=== PATIENT | female | born 1955 | race African-American/Black ===

== ENCOUNTER 2018-02-26 15:51 | Emergency (ER) | payer SELFPAY ==
--- NOTE | 2018-02-26 17:04 | PDOC ---
History of Present Illness - General History Source: Patient Exam Limitations: No Limitations <Jorge Nicole - Last Filed: 02/26/18 19:02> - General History Source: Patient Exam Limitations: No Limitations - History of Present Illness Initial Comments: 02/26/18 19:13 The patient is a 62 year old female with past medical history of diabetes, acid reflux, cholesterol, hyperthyroidism, and HTN presents to the emergency department accompanied by a friend with fatigue and malaise. The patient was evaluated at [facility] for similar symptoms with an acute onset of diarrhea (watery, brownish) for the past 3 days. The patient reports concerns due to her not back to her normal self. The patient reports symptoms of loss of appetite, weight loss (33 lb in the last 2 months), generalized weakness, yellow colored urine and hoarseness. Denies nausea, vomiting, headaches, fever, chills. Denies abd pain, chest pain or SOB. Sreedhar hematochezia, melena, dysuria , hematuria, or frequency or urgency to urinate. Allergies: NKDA Social history: None reported. <Shilpa Ramos - Last Filed: 02/26/18 19:13> - General Chief Complaint: Lethargy Stated Complaint: LETHARGIC Time Seen by Provider: 02/26/18 15:54 Past History <Jorge Nicole - Last Filed: 02/26/18 19:02> <Shilpa Ramos - Last Filed: 02/26/18 19:13> - Past Medical History Allergies/Adverse Reactions: Allergies Allergy/AdvReac Type Severity Reaction Status Date / Time No Known Allergies Allergy Verified 02/26/18 15:54 Home Medications: Ambulatory Orders Amlodipine Besylate [Norvasc -] 5 mg PO DAILY 02/26/18 Atenolol [Tenormin] 50 mg PO BID 02/26/18 Atorvastatin Ca [Lipitor] 40 mg PO HS 02/26/18 Folic Acid 1 mg PO DAILY 02/26/18 Glimepiride [Amaryl -] 2 mg PO DAILY 02/26/18 Hydrochlorothiazide [Hctz -] 25 mg PO DAILY 02/26/18 Losartan Potassium [Cozaar] 100 mg PO DAILY 02/26/18 Methimazole 30 mg PO DAILY 02/26/18 Pantoprazole Sodium [Protonix] 40 mg PO DAILY 02/26/18 Review of Systems - Review of Systems Able to Perform ROS?: Yes Comments:: 02/26/18 19:13 Constitutional - (+) Fatigue. Pt denies Fever, Chills. HEENT: denies vision changes, sore throat Respiratory: Denies cough, sob, hemoptysis Cardiac: denies chest pain, palpitations, lightheadedness, leg swelling Abd/GI: (+) watery diarrhea. denies abd pain, nausea, vomiting, blood per rectum , melena or hematochezia. : denies dysuria, frequency, discharge Musculskelatal - denies back pain, joint swelling skin - denies bruising, erythema, rash neurological:(+) generalized weakness and malaise. denies headache, numbness, focal weakness, tingling, ataxia. hematologic: denies anemia, easy bruising, easy bleeding <Shilpa Ramos - Last Filed: 02/26/18 19:13> *Physical Exam - Vital Signs Last Vital Signs Temp Pulse Resp BP Pulse Ox 98.5 F 65 16 140/55 97 02/26/18 15:53 02/26/18 15:53 02/26/18 15:53 02/26/18 15:53 02/26/18 15:53 - Physical Exam Comments: 02/26/18 19:13 GENERAL: The patient is awake, alert, and fully oriented, Nontoxic - in no acute distress. HEAD: Normocephalic, atraumatic. EYES: extraocular movements intact, sclera anicteric, conjunctiva clear. ENT: Normal voice, Moist mucous membranes. NECK: Normal range of motion, supple LUNGS: Breath sounds equal, clear to auscultation bilaterally. No wheezes, no rhonchi, no rales. HEART: Regular rate and rhythm, normal S1 and S2 without murmur, rub or gallop. ABDOMEN: Soft, nontender, normoactive bowel sounds. No guarding, no rebound. No CVA tenderness EXTREMITIES: Normal range of motion, no edema. No clubbing or cyanosis. No cords, erythema, or tenderness. PSYCH: Normal mood, normal affect. SKIN: Warm, Dry, normal turgor, NEURO: Mental status: The patient is oriented x3. Cranial nerves: Cranial nerves II through XII are intact Motor: The upper extremities are 5 over 5 in all muscle groups. The lower extremities are 5 over 5 in all muscle groups. Negative pronator drift Sensation: Sensation is intact to light touch throughout. romberg negative Cerebellar: Knebrh-eolicn-imhv is normal in both upper extremities. Gait: Normal. <Shilpa Ramos - Last Filed: 02/26/18 19:13> Heart Score/ECG Review - ECG Impressions Comment:: 02/26/18 18:02 Twelve-lead EKG was performed and reviewed by me. There is normal sinus rhythm with a normal rate. Rate of 61 The axis is normal. The intervals are normal. There is normal R wave progression Nonspecific T wave abnormality <Jorge Nicole - Last Filed: 02/26/18 19:02> ED Treatment Course - LABORATORY CBC & Chemistry Diagram: 02/26/18 17:49 02/26/18 17:49 <Jorge Nicole - Last Filed: 02/26/18 19:02> - LABORATORY CBC & Chemistry Diagram: 02/26/18 17:49 02/26/18 17:49 - ADDITIONAL ORDERS Additional order review: Laboratory Results 02/26/18 02/26/18 18:32 17:49 Sodium 135 L Potassium 3.7 Chloride 101 Carbon Dioxide 29 H Anion Gap 5 L BUN 21 H Creatinine < 0.8 Creat Clearance w eGFR > 60 Random Glucose 117 H Calcium 11.5 H Total Bilirubin 1.7 H AST 30 ALT 27 Alkaline Phosphatase 55 Total Protein 6.5 Albumin 3.6 Urine Color Yellow Urine Appearance Hazy Urine pH 5.5 Ur Specific Barney 1.025 Urine Protein Negative Urine Glucose (UA) Negative Urine Ketones Trace Urine Blood Negative Urine Nitrite Negative Urine Bilirubin Negative Urine Urobilinogen 1.0 Ur Leukocyte Esterase 1+ H Urine RBC 0-3 Urine WBC 5-10 Ur Epithelial Cells 5-10 Calcium Oxalate Crystal Many Urine Yeast Rare 02/26/18 17:49 RBC 3.31 L MCV 89.5 MCHC 33.9 RDW 11.6 MPV 11.1 Neutrophils % 53.2 Lymphocytes % 32.2 Monocytes % 11.9 H Eosinophils % 2.4 Basophils % 0.3 <Shilpa Ramos - Last Filed: 02/26/18 19:13> Medical Decision Making - Medical Decision Making 02/26/18 17:58 62y F hx of thyroid problems htn, hl, dm presents with complaint of diarrhea x 3 days and generalized weakness for a few weeks. pt was evaluated at [facility] and admitted for overnight stay and was dx with tyroid disorder. pt is feelig about the same since discharge beside her diarrhea - no assocated f/c, abd pain, cp, sob. on exam pt appears well with a normal exam including neuro exam will check lab work to rule out anemia, metabolic derangements, occult UTI, EKG to screen for ACS Will reassess if the patient's blood work is unremarkable will likely discharge to follow-up with PMD for further evaluation A portion of this note was documented by scribe services under my direction. I have reviewed the details of the note, within reason, and agree with the documentation with the following case summary and management plan written by me 02/26/18 19:02 The patient's blood work was reviewed TSH pending Will have the patient follow up with her primary care doctor next week for further evaluation I discussed the physical exam findings, ancillary test results and final diagnoses with the patient. I answered all of the patient's questions. The patient was satisfied with the care received and felt comfortable with the discharge plan and treatment plan. The patient will call their primary care physician within 24 hours to arrange follow-up and will return to the Emergency Department with any new, persistent or worsening symptoms. <Jorge Niocle - Last Filed: 02/26/18 19:02> *DC/Admit/Observation/Transfer - Discharge Dispostion Admit: No <Jorge Nicole - Last Filed: 02/26/18 19:02> - Attestations Scribe Attestion: 02/26/18 19:13 Documentation prepared by Shilpa Ramos, acting as pediatric medical assistant for Jorge Nicole MD. <Shilpa Ramos - Last Filed: 02/26/18 19:13> Diagnosis at time of Disposition: Malaise Diarrhea Qualifiers: Diarrhea type: unspecified type Qualified Code(s): R19.7 - Diarrhea, unspecified Anemia Qualifiers: Anemia type: other cause Other causes of anemia: other cause, not classified Qualified Code(s): D64.89 - Other specified anemias - Discharge Dispostion Disposition: HOME Condition at time of disposition: Stable - Referrals Referrals: humza navarro [Other] - Patient Instructions Printed Discharge Instructions: Anemia, DI for Muscle Weakness Additional Instructions: Return to the emergency department immediately with ANY new, persistent or worsening symptoms during any pain, shortness of breath, fevers, chills or any other concerns. You were some mild abnormalities in your blood work including anemia, slightly elevated calcium, slightly low sodium please follow-up with Dr. Chayo Argueta next week. Your thyroid function is pending. You MUST call and follow up with your doctor on wednesday or for further evaluation of your symptoms. Results were discussed with you. Please make sure your doctor reviews the results of your emergency evaluation. Print Language: GREEK
[2018-02-26 17:06] VITALS: BP 140/55; PULSE 65; TEMP 98.5; BMI 24.3
[2018-02-26 18:11] LABS: BASO % 0.3 % (0-2.0); EOS % 2.4 % (0-4.5); HEMATOCRIT 29.6 % (32.4-45.2); LYMPH % 32.2 % (8-40); MCH 30.3 pg (25.7-33.7); MCHC 33.9 g/dl (32.0-36.0); MEAN CELL VOLUME 89.5 fl (80-96); MEAN PLT VOLUME 11.1 fl (7.5-11.1); MONO % 11.9 % (3.8-10.2); NEUT % 53.2 % (42.8-82.8); PLATELET COUNT 149 K/MM3 (134-434); RBC 3.31 M/mm3 (3.60-5.2); RDW 11.6 % (11.6-15.6); WHITE BLOOD COUNT 4.4 K/mm3 (4.0-10.8)
[2018-02-26 18:16] LABS: ALBUMIN 3.6 g/dl (3.5-5.0); ALK PHOS 55 U/L (32-92); ANION GAP 5 (8-16); BILIRUBIN,TOTAL 1.7 mg/dl (0.2-1.0); BLOOD UREA NITROGEN 21 mg/dl (7-18); CALCIUM 11.5 mg/dl (8.4-10.2); CHLORIDE 101 mmol/L (98-107); CO2 29 mmol/L (22-28); GLUCOSE,RANDOM 117 mg/dl (74-106); POTASSIUM 3.7 mmol/L (3.5-5.1); SGOT/AST 30 U/L (10-42); SGPT/ALT 27 U/L (10-40); SODIUM 135 mmol/L (136-145); TOT PROT 6.5 g/dl (6.4-8.3)
[2018-02-26 18:23] LABS: CREATININE < 0.8 mg/dl (0.6-1.3)
[2018-02-26 18:41] LABS: PH,URINE 5.5 (4.5-8); URINE APPEARANCE HAZY; URINE BILIRUBIN Negative (NEGATIVE); URINE COLOR YELLOW; URINE GLUCOSE (UA) Negative (NEGATIVE); URINE KETONE Trace (NEGATIVE); URINE LEUK ESTERASE 1+ (NEGATIVE); URINE NITRITE Negative (NEGATIVE); URINE PROTEIN Negative (NEGATIVE)
[2018-02-26 18:58] LABS: CALCIUM OXALATE CRYSTALS MANY /hpf (NONE SEEN); URINE RBC 0-3 /hpf (0-3); YEAST RARE
--- NOTE | 2018-02-27 14:34 | EKG ---
Test Reason : Blood Pressure : / mmHG Vent. Rate : 061 BPM Atrial Rate : 061 BPM P-R Int : 156 ms QRS Dur : 080 ms QT Int : 404 ms P-R-T Axes : 036 023 048 degrees QTc Int : 406 ms NORMAL SINUS RHYTHM WITH SINUS ARRHYTHMIA MINIMAL VOLTAGE CRITERIA FOR LVH, MAY BE NORMAL VARIANT NONSPECIFIC T WAVE ABNORMALITY ABNORMAL ECG NO PREVIOUS ECGS AVAILABLE Confirmed by MD Conor, Sky ([id number]) on 02/27/2018 2:33:52 PM Referred By: ANKIT Confirmed By:Sky Perdomo MD
== END 2018-02-26 19:35 | disposition home or self-care (01) ==
LOC: EDBD → FER 15:51
DX: R53.81 Other malaise (principal); R19.7 Diarrhea, unspecified; D64.89 Other specified anemias; I10 Essential (primary) hypertension; E78.00 Pure hypercholesterolemia, unspecified; E03.9 Hypothyroidism, unspecified; E11.9 Type 2 diabetes mellitus without complications
CPT/HCPCS: 36415; 80053; 81003; 81015; 84443; 85025; 93005; 99283-25

== ENCOUNTER 2022-10-11 21:56 | Inpatient (IN) | payer OTHER ==
[2022-10-11 22:08] VITALS: BMI 27.0
[2022-10-11] MEDS ORDERED: LORazepam 2 MG/ML SDV VIAL IVPUSH ONE (22:57)
[2022-10-11] MEDS ORDERED: LORazepam 2 MG TABLET PO ONE (22:58)
[2022-10-11] MEDS ORDERED: LORazepam 1 MG TABLET ONE (23:15)
[2022-10-11 23:47] LABS: INR 1.07 (0.83-1.09); PROTHROMBIN TIME (PATIENT) 12.3 SEC (9.7-13.0)
[2022-10-11 23:49] LABS: HEMOGLOBIN 12.6 GM/dL (10.7-15.3); MCH 30.9 pg (25.7-33.7); MCHC 32.4 g/dl (32.0-36.0); MEAN CELL VOLUME 95.6 fl (80-96); MEAN PLT VOLUME 10.7 fl (7.5-11.1); RBC 4.08 M/mm3 (3.60-5.2); RDW 12.9 % (11.6-15.6); WHITE BLOOD COUNT 7.7 K/mm3 (4.0-10.0)
[2022-10-11 23:50] LABS: ACTIVATED PTT 22.7 SECONDS (25.2-36.5)
[2022-10-12 00:25] LABS: ALBUMIN 4.6 g/dl (3.4-5.0); BLOOD UREA NITROGEN 18.4 mg/dL (7-18); CALCIUM 10.9 mg/dL (8.5-10.1)
[2022-10-12 00:28] LABS: CREATININE 1.2 mg/dL (0.55-1.3)
[2022-10-12 00:30] LABS: BILIRUBIN,TOTAL 1.3 mg/dL (0.2-1); TOT PROT 8.8 g/dl (6.4-8.2)
[2022-10-12] MEDS ORDERED: SODIUM CHLORIDE 0.9% 500 ML INFUS.BAG IV ONE (02:05)
[2022-10-12 04:13] LABS: ANISOCYTOSIS 1+; MACROCYTOSIS 1+
[2022-10-12 04:17] LABS: PLATELET COUNT 371 10^3/uL (134-434)
[2022-10-12 07:57] LABS: BASO % 0.8 % (0-2.0); HEMATOCRIT 34.9 % (32.4-45.2); HEMOGLOBIN 11.2 GM/dL (10.7-15.3); MCH 30.9 pg (25.7-33.7); MCHC 32.3 g/dl (32.0-36.0); MEAN CELL VOLUME 95.9 fl (80-96); MEAN PLT VOLUME 10.5 fl (7.5-11.1); MONO % 10.1 % (3.8-10.2); NEUT % 57.1 % (42.8-82.8); PLATELET COUNT 190 10^3/uL (134-434); RBC 3.64 M/mm3 (3.60-5.2); RDW 12.7 % (11.6-15.6)
[2022-10-12 08:13] LABS: CALCIUM 10.4 mg/dL (8.5-10.1)
[2022-10-12 08:14] LABS: ALBUMIN 3.8 g/dl (3.4-5.0); BLOOD UREA NITROGEN 19.6 mg/dL (7-18); MAGNESIUM 1.4 mg/dL (1.8-2.4)
[2022-10-12 08:16] LABS: CREATININE 0.8 mg/dL (0.55-1.3)
[2022-10-12] MEDS: INSULIN SLIDING SCALE (NOVOLOG) 1 VIAL SQ SCH ×4 (08:16→23:02)
[2022-10-12 08:17] LABS: PHOSPHOROUS 3.8 mg/dL (2.5-4.9)
[2022-10-12 08:18] LABS: BILIRUBIN,TOTAL 1.1 mg/dL (0.2-1); TOT PROT 7.4 g/dl (6.4-8.2)
[2022-10-12] MEDS ORDERED: ENOXAPARIN NA (PORCINE) 40 MG/0.4 ML DISP.SYRIN SQ ONE (10:24)
[2022-10-12] MEDS: ENOXAPARIN NA (PORCINE) 40 MG/0.4 ML DISP.SYRIN SQ SCH (11:49)
[2022-10-12 13:57] LABS: EPI CELLS 25 /uL (0-25.1); HYALINE CASTS 5 /uL (0-3.1); PH,URINE 5.5 (5.0-8.0); URINE APPEARANCE CLEAR; URINE BACTERIA 36 /uL (0-1359); URINE BILIRUBIN NEGATIVE (NEGATIVE); URINE COLOR YELLOW; URINE GLUCOSE (UA) TRACE (NEGATIVE); URINE KETONE NEGATIVE (NEGATIVE); URINE LEUK ESTERASE NEGATIVE (NEGATIVE); URINE NITRITE NEGATIVE (NEGATIVE); URINE PROTEIN 1+ (NEGATIVE); URINE RBC 10 /uL (0-23.9); URINE UROBILINOGEN 0.2 mg/dL (0.2-1.0); URINE WBC 31 /uL (0-25.8)
[2022-10-12 14:21] LABS: COCAINE, UR NEGATIVE (NEGATIVE); PHENCYCLIDINE,URINE NEGATIVE (NEGATIVE); URINE BARBITURATES NEGATIVE (NEGATIVE)
[2022-10-12 14:26] LABS: METHADONE, UR NEGATIVE (NEGATIVE); OPIATES, URI NEGATIVE (NEGATIVE); URINE AMPHETAMINES NEGATIVE (NEGATIVE); URINE BENZODIAZEPINES NEGATIVE (NEGATIVE)
[2022-10-12] MEDS ORDERED: MAGNESIUM SULF 50% (8.12 MEQ/2 ML-1 GM VIAL) IVPB ONE (16:20)
[2022-10-12] MEDS ORDERED: MAGNESIUM SULFATE IN WATER 2 GM/50 ML IVPB IVPB ONE (17:03)
[2022-10-12] MEDS ORDERED: LABETALOL HCL 5 MG/1 ML (100MG/20 ML VIAL) IVPUSH ONE (22:48)
[2022-10-12] MEDS ORDERED: LORazepam 2 MG/ML SDV VIAL IVPUSH ONE (23:02)
[2022-10-12] MEDS ORDERED: hydrALAZINE HCL 20 MG/ML VIAL IVPUSH ONE (23:02)
[2022-10-12] MEDS ORDERED: QUEtiapine FUMARATE 25 MG TABLET PO ONE (23:08)
[2022-10-13] MEDS: INSULIN SLIDING SCALE (NOVOLOG) 1 VIAL SQ SCH ×4 (06:24→22:01)
[2022-10-13 09:17] LABS: BASO % 0.6 % (0-2.0); EOS % 1.3 % (0-4.5); HEMOGLOBIN 12.1 GM/dL (10.7-15.3); LYMPH % 40.1 % (8-40); MCH 31.9 pg (25.7-33.7); MCHC 33.6 g/dl (32.0-36.0); MEAN CELL VOLUME 94.9 fl (80-96); MEAN PLT VOLUME 9.8 fl (7.5-11.1); MONO % 9.1 % (3.8-10.2); NEUT % 48.9 % (42.8-82.8); PLATELET COUNT 202 10^3/uL (134-434); RDW 13.5 % (11.6-15.6); WHITE BLOOD COUNT 5.1 K/mm3 (4.0-10.0)
[2022-10-13 09:41] LABS: CALCIUM 10.8 mg/dL (8.5-10.1)
[2022-10-13 09:42] LABS: MAGNESIUM 1.4 mg/dL (1.8-2.4)
[2022-10-13 09:43] LABS: BLOOD UREA NITROGEN 15.2 mg/dL (7-18)
[2022-10-13 09:44] LABS: ALBUMIN 4.1 g/dl (3.4-5.0)
[2022-10-13 09:45] LABS: CREATININE 0.7 mg/dL (0.55-1.3)
[2022-10-13 09:46] LABS: TOT PROT 7.7 g/dl (6.4-8.2)
[2022-10-13 09:47] LABS: PHOSPHOROUS 3.7 mg/dL (2.5-4.9)
[2022-10-13 09:48] LABS: BILIRUBIN,TOTAL 1.5 mg/dL (0.2-1)
[2022-10-13] MEDS ORDERED: MAGNESIUM 1GM/D5W - 1 GM/100 ML IVPB IVPB ONE (10:45)
[2022-10-13] MEDS: ENOXAPARIN NA (PORCINE) 40 MG/0.4 ML DISP.SYRIN SQ SCH (12:05)
[2022-10-13] MEDS: ASPIRIN 81 MG CHEWABLE TABLETS PO SCH (12:05)
[2022-10-13] MEDS ORDERED: hydrALAZINE HCL 20 MG/ML VIAL IVPUSH ONE (22:57)
[2022-10-13] MEDS: ACETAMINOPHEN 325 MG TABLET (FP) PO PRN (23:06)
[2022-10-14] MEDS: INSULIN SLIDING SCALE (NOVOLOG) 1 VIAL SQ SCH ×4 (07:15→21:52)
[2022-10-14] MEDS: ENOXAPARIN NA (PORCINE) 40 MG/0.4 ML DISP.SYRIN SQ SCH (09:52)
[2022-10-14] MEDS: ASPIRIN 81 MG CHEWABLE TABLETS PO SCH (09:52)
[2022-10-14] MEDS ORDERED: hydrALAZINE HCL 25 MG TABLET (FP) PO SCH (10:00)
[2022-10-14] MEDS ORDERED: amLODIPine BESYLATE 5 MG TABLET (FP) PO SCH (12:45)
[2022-10-14 13:10] LABS: MAGNESIUM 1.6 mg/dL (1.8-2.4)
[2022-10-14] MEDS: HYDROCHLOROTHIAZIDE 25 MG TABLET (FP) PO SCH (16:22)
[2022-10-14] MEDS: LOSARTAN POTASSIUM 50 MG TABLET PO SCH (16:22)
[2022-10-14] MEDS: ATENOLOL 50 MG TABLET (FP) PO SCH ×2 (16:23→21:52)
[2022-10-15] MEDS: INSULIN SLIDING SCALE (NOVOLOG) 1 VIAL SQ SCH ×4 (06:18→21:42)
[2022-10-15] MEDS: ENOXAPARIN NA (PORCINE) 40 MG/0.4 ML DISP.SYRIN SQ SCH (09:04)
[2022-10-15] MEDS: ATENOLOL 50 MG TABLET (FP) PO SCH (09:05)
[2022-10-15] MEDS: ASPIRIN 81 MG CHEWABLE TABLETS PO SCH (09:05)
[2022-10-15] MEDS: HYDROCHLOROTHIAZIDE 25 MG TABLET (FP) PO SCH (09:05)
[2022-10-15] MEDS: LOSARTAN POTASSIUM 50 MG TABLET PO SCH (09:05)
[2022-10-15] MEDS ORDERED: MAGNESIUM SULF 50% (8.12 MEQ/2 ML-1 GM VIAL) IVPB ONE (16:49)
[2022-10-16] MEDS: INSULIN SLIDING SCALE (NOVOLOG) 1 VIAL SQ SCH ×4 (06:23→21:21)
[2022-10-16 09:22] LABS: EOS % 2.2 % (0-4.5); HEMATOCRIT 32.4 % (32.4-45.2); HEMOGLOBIN 10.4 GM/dL (10.7-15.3); LYMPH % 49.6 % (8-40); MCH 30.7 pg (25.7-33.7); MCHC 32.1 g/dl (32.0-36.0); MEAN CELL VOLUME 95.8 fl (80-96); MEAN PLT VOLUME 10.3 fl (7.5-11.1); MONO % 8.6 % (3.8-10.2); NEUT % 38.6 % (42.8-82.8); PLATELET COUNT 164 10^3/uL (134-434); RBC 3.38 M/mm3 (3.60-5.2); WHITE BLOOD COUNT 3.3 K/mm3 (4.0-10.0)
[2022-10-16] MEDS: LOSARTAN POTASSIUM 50 MG TABLET PO SCH (09:30)
[2022-10-16] MEDS: NIFEdipine E.R. 90 MG TABLET PO SCH (09:30)
[2022-10-16] MEDS: FOLIC ACID 1 MG TABLET (FP) PO SCH (09:30)
[2022-10-16] MEDS: ASPIRIN 81 MG CHEWABLE TABLETS PO SCH (09:30)
[2022-10-16] MEDS: PANTOPRAZOLE 40 MG TABLET PO SCH (09:30)
[2022-10-16] MEDS: METHIMAZOLE 10 MG TABLET PO SCH (09:31)
[2022-10-16] MEDS: ENOXAPARIN NA (PORCINE) 40 MG/0.4 ML DISP.SYRIN SQ SCH (09:36)
[2022-10-16 09:45] LABS: ALBUMIN 3.7 g/dl (3.4-5.0)
[2022-10-16 09:48] LABS: MAGNESIUM 1.5 mg/dL (1.8-2.4)
[2022-10-16 09:50] LABS: CREATININE 0.7 mg/dL (0.55-1.3); PHOSPHOROUS 3.2 mg/dL (2.5-4.9)
[2022-10-16 09:51] LABS: TOT PROT 7.2 g/dl (6.4-8.2)
[2022-10-16 09:56] LABS: BILIRUBIN,TOTAL 1.3 mg/dL (0.2-1)
[2022-10-16] MEDS ORDERED: HYDROCHLOROTHIAZIDE 25 MG TABLET (FP) PO SCH (10:00)
[2022-10-16] MEDS ORDERED: NIFEdipine E.R. 90 MG TABLET PO SCH (10:00)
[2022-10-16 10:01] LABS: CALCIUM 10.4 mg/dL (8.5-10.1)
[2022-10-16] MEDS ORDERED: MAGNESIUM SULF 50% (8.12 MEQ/2 ML-1 GM VIAL) IVPB ONE ×2 (11:00)
[2022-10-16] MEDS ORDERED: hydrALAZINE HCL 10 MG TABLET PO SCH ×2 (14:00→18:00)
[2022-10-16] MEDS: CHOLECALCIFEROL (VIT D3) 1,000 UNIT (25 MCG) TABLET PO SCH (14:45)
[2022-10-16] MEDS: hydrALAZINE HCL 10 MG TABLET PO SCH (17:03)
[2022-10-17] MEDS: hydrALAZINE HCL 10 MG TABLET PO SCH ×4 (01:35→17:14)
[2022-10-17] MEDS: INSULIN SLIDING SCALE (NOVOLOG) 1 VIAL SQ SCH ×3 (08:52→16:51)
[2022-10-17] MEDS: ENOXAPARIN NA (PORCINE) 40 MG/0.4 ML DISP.SYRIN SQ SCH (09:05)
[2022-10-17] MEDS: LOSARTAN POTASSIUM 50 MG TABLET PO SCH (09:06)
[2022-10-17] MEDS: METHIMAZOLE 10 MG TABLET PO SCH (09:06)
[2022-10-17] MEDS: ASPIRIN 81 MG CHEWABLE TABLETS PO SCH (09:06)
[2022-10-17] MEDS: NIFEdipine E.R. 90 MG TABLET PO SCH (09:06)
[2022-10-17] MEDS: FOLIC ACID 1 MG TABLET (FP) PO SCH (09:06)
[2022-10-17] MEDS: CHOLECALCIFEROL (VIT D3) 1,000 UNIT (25 MCG) TABLET PO SCH (09:06)
[2022-10-17] MEDS: PANTOPRAZOLE 40 MG TABLET PO SCH (09:07)
[2022-10-17 09:29] LABS: HEMATOCRIT 35.9 % (32.4-45.2); HEMOGLOBIN 11.6 GM/dL (10.7-15.3); MCHC 32.1 g/dl (32.0-36.0); MEAN CELL VOLUME 96.3 fl (80-96); MEAN PLT VOLUME 10.4 fl (7.5-11.1); PLATELET COUNT 194 10^3/uL (134-434); RBC 3.73 M/mm3 (3.60-5.2); WHITE BLOOD COUNT 4.7 K/mm3 (4.0-10.0)
[2022-10-17 09:51] LABS: BLOOD UREA NITROGEN 14.1 mg/dL (7-18); CALCIUM 10.4 mg/dL (8.5-10.1)
[2022-10-17 09:55] LABS: CREATININE 0.9 mg/dL (0.55-1.3)
[2022-10-17 09:56] LABS: BILIRUBIN,TOTAL 1.3 mg/dL (0.2-1); TOT PROT 7.6 g/dl (6.4-8.2)
[2022-10-17] MEDS: INSULIN (NOVOLOG) ASPART 100 UNITS/ML 10ML VIAL SQ SCH ×2 (11:47→16:52)
[2022-10-18] MEDS: hydrALAZINE HCL 10 MG TABLET PO SCH ×2 (02:03→06:00)
[2022-10-18] MEDS: INSULIN SLIDING SCALE (NOVOLOG) 1 VIAL SQ SCH ×5 (02:05→21:59)
[2022-10-18] MEDS: ACETAMINOPHEN 325 MG TABLET (FP) PO PRN (06:41)
[2022-10-18] MEDS: INSULIN (NOVOLOG) ASPART 100 UNITS/ML 10ML VIAL SQ SCH ×3 (07:22→15:48)
[2022-10-18] MEDS: LOSARTAN POTASSIUM 50 MG TABLET PO SCH (09:10)
[2022-10-18] MEDS: METHIMAZOLE 10 MG TABLET PO SCH (09:10)
[2022-10-18] MEDS: NIFEdipine E.R. 90 MG TABLET PO SCH (09:14)
[2022-10-18] MEDS: CHOLECALCIFEROL (VIT D3) 1,000 UNIT (25 MCG) TABLET PO SCH (09:15)
[2022-10-18] MEDS: ENOXAPARIN NA (PORCINE) 40 MG/0.4 ML DISP.SYRIN SQ SCH (09:16)
[2022-10-18] MEDS: ASPIRIN 81 MG CHEWABLE TABLETS PO SCH (09:16)
[2022-10-18] MEDS: PANTOPRAZOLE 40 MG TABLET PO SCH (09:16)
[2022-10-18] MEDS: FOLIC ACID 1 MG TABLET (FP) PO SCH (09:16)
[2022-10-18 09:43] LABS: HEMATOCRIT 35.1 % (32.4-45.2); HEMOGLOBIN 11.2 GM/dL (10.7-15.3); LYMPH % 33.6 % (8-40); MCH 30.5 pg (25.7-33.7); MCHC 31.8 g/dl (32.0-36.0); MEAN CELL VOLUME 95.9 fl (80-96); MEAN PLT VOLUME 10.8 fl (7.5-11.1); MONO % 9.1 % (3.8-10.2); NEUT % 54.3 % (42.8-82.8); PLATELET COUNT 198 10^3/uL (134-434); RBC 3.66 M/mm3 (3.60-5.2); WHITE BLOOD COUNT 4.4 K/mm3 (4.0-10.0)
[2022-10-18 10:08] LABS: BLOOD UREA NITROGEN 18.5 mg/dL (7-18); CALCIUM 10.8 mg/dL (8.5-10.1); MAGNESIUM 1.5 mg/dL (1.8-2.4)
[2022-10-18 10:11] LABS: PHOSPHOROUS 3.3 mg/dL (2.5-4.9)
[2022-10-18 10:12] LABS: CREATININE 0.8 mg/dL (0.55-1.3)
[2022-10-18] MEDS ORDERED: MAGNESIUM SULF 50% (8.12 MEQ/2 ML-1 GM VIAL) IVPB ONE (13:30)
[2022-10-18] MEDS: CARVEDILOL 12.5 MG TABLET (FP) PO SCH ×2 (13:35→22:13)
[2022-10-19] MEDS: INSULIN (NOVOLOG) ASPART 100 UNITS/ML 10ML VIAL SQ SCH ×3 (06:04→17:07)
[2022-10-19] MEDS: INSULIN SLIDING SCALE (NOVOLOG) 1 VIAL SQ SCH ×4 (06:05→22:28)
[2022-10-19 08:21] LABS: HEMATOCRIT 32.3 % (32.4-45.2); HEMOGLOBIN 10.3 GM/dL (10.7-15.3); MCH 30.5 pg (25.7-33.7); MCHC 31.8 g/dl (32.0-36.0); MEAN CELL VOLUME 95.8 fl (80-96); MEAN PLT VOLUME 10.4 fl (7.5-11.1); PLATELET COUNT 162 10^3/uL (134-434); RBC 3.38 M/mm3 (3.60-5.2); RDW 12.9 % (11.6-15.6); WHITE BLOOD COUNT 3.4 K/mm3 (4.0-10.0)
[2022-10-19 08:43] LABS: CALCIUM 10.6 mg/dL (8.5-10.1)
[2022-10-19 08:44] LABS: ALBUMIN 3.4 g/dl (3.4-5.0); BLOOD UREA NITROGEN 18.6 mg/dL (7-18); MAGNESIUM 1.7 mg/dL (1.8-2.4)
[2022-10-19 08:47] LABS: CREATININE 0.6 mg/dL (0.55-1.3); PHOSPHOROUS 3.3 mg/dL (2.5-4.9)
[2022-10-19 08:48] LABS: TOT PROT 6.6 g/dl (6.4-8.2)
[2022-10-19] MEDS: ASPIRIN 81 MG CHEWABLE TABLETS PO SCH (09:18)
[2022-10-19] MEDS: CHOLECALCIFEROL (VIT D3) 1,000 UNIT (25 MCG) TABLET PO SCH (09:18)
[2022-10-19] MEDS: NIFEdipine E.R. 90 MG TABLET PO SCH (09:19)
[2022-10-19] MEDS: METHIMAZOLE 10 MG TABLET PO SCH (09:19)
[2022-10-19] MEDS: LOSARTAN POTASSIUM 50 MG TABLET PO SCH (09:19)
[2022-10-19] MEDS: CARVEDILOL 12.5 MG TABLET (FP) PO SCH ×2 (09:19→22:22)
[2022-10-19] MEDS: FOLIC ACID 1 MG TABLET (FP) PO SCH (09:19)
[2022-10-19] MEDS ORDERED: MAGNESIUM SULF 50% (8.12 MEQ/2 ML-1 GM VIAL) IVPB ONE (11:52)
[2022-10-19] MEDS: ATORVASTATIN CA 40 MG TABLET (FP) PO SCH (22:23)
[2022-10-20] MEDS: INSULIN (NOVOLOG) ASPART 100 UNITS/ML 10ML VIAL SQ SCH ×3 (06:45→18:08)
[2022-10-20] MEDS: INSULIN SLIDING SCALE (NOVOLOG) 1 VIAL SQ SCH ×4 (06:46→22:36)
[2022-10-20] MEDS: METHIMAZOLE 10 MG TABLET PO SCH (10:17)
[2022-10-20] MEDS: NIFEdipine E.R. 90 MG TABLET PO SCH (10:17)
[2022-10-20] MEDS: CARVEDILOL 12.5 MG TABLET (FP) PO SCH (10:17)
[2022-10-20] MEDS: CHOLECALCIFEROL (VIT D3) 1,000 UNIT (25 MCG) TABLET PO SCH (10:23)
[2022-10-20] MEDS: LOSARTAN POTASSIUM 50 MG TABLET PO SCH (10:23)
[2022-10-20] MEDS: ASPIRIN 81 MG CHEWABLE TABLETS PO SCH (10:23)
[2022-10-20] MEDS: FOLIC ACID 1 MG TABLET (FP) PO SCH (10:23)
[2022-10-20 11:44] LABS: BLOOD UREA NITROGEN 18.2 mg/dL (7-18); CALCIUM 10.4 mg/dL (8.5-10.1); MAGNESIUM 1.7 mg/dL (1.8-2.4)
[2022-10-20 11:46] LABS: CREATININE 0.7 mg/dL (0.55-1.3)
[2022-10-20] MEDS ORDERED: MAGNESIUM SULF 50% (8.12 MEQ/2 ML-1 GM VIAL) IVPB ONE ×2 (18:41→21:45)
[2022-10-20] MEDS: ATORVASTATIN CA 40 MG TABLET (FP) PO SCH (22:36)
[2022-10-21] MEDS: INSULIN (NOVOLOG) ASPART 100 UNITS/ML 10ML VIAL SQ SCH ×3 (07:49→16:29)
[2022-10-21] MEDS: INSULIN SLIDING SCALE (NOVOLOG) 1 VIAL SQ SCH ×4 (07:50→22:29)
[2022-10-21] MEDS: LOSARTAN POTASSIUM 50 MG TABLET PO SCH (10:24)
[2022-10-21] MEDS: ASPIRIN 81 MG CHEWABLE TABLETS PO SCH (10:24)
[2022-10-21] MEDS: FOLIC ACID 1 MG TABLET (FP) PO SCH (10:24)
[2022-10-21] MEDS: CHOLECALCIFEROL (VIT D3) 1,000 UNIT (25 MCG) TABLET PO SCH (10:25)
[2022-10-21] MEDS: METHIMAZOLE 10 MG TABLET PO SCH (10:25)
[2022-10-21] MEDS: NIFEdipine E.R. 90 MG TABLET PO SCH (10:25)
[2022-10-21 12:26] LABS: BLOOD UREA NITROGEN 12.2 mg/dL (7-18); CALCIUM 10.4 mg/dL (8.5-10.1); MAGNESIUM 1.9 mg/dL (1.8-2.4)
[2022-10-21 12:29] LABS: CREATININE 0.7 mg/dL (0.55-1.3)
[2022-10-21 17:43] VITALS: RESP 18
[2022-10-21] MEDS: ATORVASTATIN CA 40 MG TABLET (FP) PO SCH (22:28)
[2022-10-21 22:36] VITALS: PULSE 51
[2022-10-22] MEDS: INSULIN SLIDING SCALE (NOVOLOG) 1 VIAL SQ SCH ×3 (07:34→16:54)
[2022-10-22] MEDS: INSULIN (NOVOLOG) ASPART 100 UNITS/ML 10ML VIAL SQ SCH ×3 (07:34→16:54)
[2022-10-22] MEDS: ASPIRIN 81 MG CHEWABLE TABLETS PO SCH (09:40)
[2022-10-22] MEDS: LOSARTAN POTASSIUM 50 MG TABLET PO SCH (09:40)
[2022-10-22] MEDS: FOLIC ACID 1 MG TABLET (FP) PO SCH (09:40)
[2022-10-22] MEDS: NIFEdipine E.R. 90 MG TABLET PO SCH (09:40)
[2022-10-22] MEDS: METHIMAZOLE 10 MG TABLET PO SCH (09:42)
[2022-10-22] MEDS: CHOLECALCIFEROL (VIT D3) 1,000 UNIT (25 MCG) TABLET PO SCH (09:42)
[2022-10-22 10:31] LABS: CALCIUM 10.4 mg/dL (8.5-10.1)
[2022-10-22 10:33] LABS: ALBUMIN 3.6 g/dl (3.4-5.0); BLOOD UREA NITROGEN 19.2 mg/dL (7-18); MAGNESIUM 1.7 mg/dL (1.8-2.4)
[2022-10-22 10:35] LABS: CREATININE 0.8 mg/dL (0.55-1.3)
[2022-10-22 10:37] LABS: TOT PROT 7.2 g/dl (6.4-8.2)
[2022-10-22] MEDS ORDERED: MAGNESIUM SULF 50% (8.12 MEQ/2 ML-1 GM VIAL) IVPB ONE (13:24)
[2022-10-22 13:34] VITALS: BP 154/81; TEMP 97.6
== END 2022-10-22 17:28 | disposition home or self-care (01) | DRG 45 ==
LOC: JER 21:56 → JERBED 10-12 02:23 → J6W 10-13 02:09 → OBSVTOIN 10-15 09:15 → J6W 10-16 20:00
PROVIDERS: ADMIT Internal Medicine; ATTEND Internal Medicine
DX: I63.89 Other cerebral infarction (principal); I10 Essential (primary) hypertension; E78.5 Hyperlipidemia, unspecified; E86.0 Dehydration; E11.65 Type 2 diabetes mellitus with hyperglycemia; E83.52 Hypercalcemia; E83.42 Hypomagnesemia; E05.90 Thyrotoxicosis, unspecified without thyrotoxic crisis or storm; R00.1 Bradycardia, unspecified; F05 Delirium due to known physiological condition; F41.9 Anxiety disorder, unspecified; H53.8 Other visual disturbances; F01.50 Vascular dementia, unspecified severity, without behavioral disturbance, psychotic disturbance, mood disturbance, and anxiety; I24.8 Other forms of acute ischemic heart disease; G93.41 Metabolic encephalopathy; R00.2 Palpitations; R26.9 Unspecified abnormalities of gait and mobility; D64.9 Anemia, unspecified; K21.9 Gastro-esophageal reflux disease without esophagitis; R74.01 Elevation of levels of liver transaminase levels
CPT/HCPCS: 0241U-QW; 36415; 70450-TC; 70551-TC; 71046-TC-FY; 80048; 80053; 80061; 80307; 81003; 82306; 82310; 82397; 82533; 82607; 82746; 82962; 83036; 83090; 83735; 83970; 84100; 84155; 84165; 84439; 84443; 84481; 84484; 85025; 85027; 85610; 85730; 86780; 87086; 93005; 93010; 93306-TC; 93880-TC; 97116-GP; 97163-GP; 99285-25; G0378